=== PATIENT | male | born 1980 ===

== ENCOUNTER 2017-04-07 10:58 | Emergency (ER) | payer BC ==
[2017-04-07 11:19] VITALS: RESP 16; TEMP 98
--- NOTE | 2017-04-07 11:53 | ED PDOC ---
HPI: General Adult Time Seen by Provider: 04/07/17 11:09 Chief Complaint (Nursing): Syncope History Per: Patient Additional Complaint(s): Pt. states today at approximately 0700 he was urinating then after he finished he looked up the at the ceiling and that's all he remembers. Pt. states next event he remembers was his knocking on the bathroom door. He got up on his own and was completely asymptomatic afterwards. His said she heard a loud "thud" then she immediately went to the bathroom and she called his name twice and pt. woke up. Denies headache, prodromal symptoms, weakness, N/V, incontinence, hx of seizures. Of note, pt. states he did sleep late last night and felt more sleepy than usual upon awakening this morning. States he went to sleep this morning at 0300. Past Medical History Reviewed: Historical Data, Nursing Documentation, Vital Signs Vital Signs: Last Vital Signs Temp 98.0 F 04/07/17 11:11 Pulse 78 04/07/17 11:54 Resp 16 04/07/17 11:11 BP 114/56 L 04/07/17 11:11 Pulse Ox 99 04/07/17 11:54 - Medical History PMH: Multiple Sclerosis - Family History Family History: States: No Known Family Hx - Allergies Allergies/Adverse Reactions: Allergies Allergy/AdvReac Type Severity Reaction Status Date / Time No Known Allergies Allergy Verified 03/03/14 03:43 Review of Systems ROS Statement: Except As Marked, All Systems Reviewed And Found Negative Physical Exam - Reviewed Nursing Documentation Reviewed: Yes Vital Signs Reviewed: Yes - Physical Exam Appears: Positive for: Well, Non-toxic, No Acute Distress Head Exam: Positive for: ATRAUMATIC, NORMAL INSPECTION, NORMOCEPHALIC Skin: Positive for: Normal Color, Warm. Negative for: Rash Eye Exam: Positive for: EOMI, Normal appearance, PERRL ENT: Positive for: Normal ENT Inspection Neck: Positive for: Normal, Painless ROM Cardiovascular/Chest: Positive for: Regular Rate, Rhythm Respiratory: Positive for: CNT, Normal Breath Sounds Gastrointestinal/Abdominal: Positive for: Normal Exam, Bowel Sounds, Soft. Negative for: Tenderness Back: Positive for: Normal Inspection. Negative for: Vertebral Tenderness ( including cervical spine tenderness) Extremity: Positive for: Normal ROM Neurologic/Psych: Positive for: Alert, Oriented, Gait (steady, unassisted). Negative for: Aphasia, Facial Droop - Laboratory Results Result Diagrams: 04/07/17 11:52 04/07/17 11:52 - ECG ECG: Positive for: Interpreted By Me ECG Rhythm: Positive for: Sinus Rhythm. Negative for: ST/T Changes Rate: 78 O2 Sat by Pulse Oximetry: 99 - Progress ED Course And Treament: Labs ordered. CT head w/o contrast ordered. 1300 CT head w/o contrast: no acute changes; chronic skull small vessel disease Disposition - Clinical Impression Clinical Impression: Syncope - Patient ED Disposition Is Patient to be Admitted: No - Disposition Referrals: Cookie Ulrich [Outside] Disposition: Routine/Home Disposition Time: 13:00 Condition: STABLE Instructions: Syncope (ED) Forms: Cookie Borrego (Azeri), [facility] ED School/Work Excuse Print Language: SYRIAC
[2017-04-07 11:58] LABS: BASO % 0.5 % (0.0-2.0); EOS % 0.7 % (0.0-4.0); HEMATOCRIT 42.3 % (35.0-51.0); LYMPH % 15.9 % (20.0-40.0); MEAN CELL VOLUME 90.7 fl (80.0-94.0); MEAN CORPUSCULAR HEMOGLOBIN 30.4 pg (27.0-31.0); MEAN CORPUSCULAR HGB CONC 33.5 g/dL (33.0-37.0); MEAN PLATELET VOLUME 6.8 fl (7.2-11.7); MONO # 0.2 K/uL (0.0-0.8); MONO % 3.3 % (0.0-10.0); NEUT % 79.6 % (50.0-75.0); NRBC % 0.2 % (0.0-0.0); RED CELL DISTRIBUTION WIDTH 13.6 % (11.5-14.5); WHITE BLOOD COUNT 6.3 K/uL (4.8-10.8)
[2017-04-07 12:04] LABS: ALB/GLOB RATIO 1.5 (1.0-2.1); ALKALINE PHOSPHATASE 75 U/L (38-126); ALT/SGPT 41 U/L (21-72); AST/SGOT 24 U/L (17-59); BILIRUBIN,TOTAL 0.9 mg/dl (0.2-1.3); BLOOD UREA NITROGEN 12 mg/dl (9-20); CALCIUM 9.2 mg/dL (8.4-10.2); CARBON DIOXIDE 25 mmol/L (22-30); CHLORIDE 104 mmol/L (98-107); GFR AFRICAN-AMERICAN > 60; GLUCOSE,RANDOM 123 mg/dL (75-110); POTASSIUM 4.4 MMOL/L (3.6-5.0); SODIUM 140 mmol/l (132-148); TOTAL PROTEIN 7.4 G/DL (6.3-8.2)
--- NOTE | 2017-04-07 12:35 | CT ---
PROCEDURE: CT HEAD WITHOUT CONTRAST. HISTORY: syncope COMPARISON: Comparison made with prior CT scan brain dated 03/03/2014. TECHNIQUE: Axial computed tomography images were obtained through the head/brain without intravenous contrast. Radiation dose: Total exam DLP = 967.04 mGy-cm. This CT exam was performed using one or more of the following dose reduction techniques: Automated exposure control, adjustment of the mA and/or kV according to patient size, and/or use of iterative reconstruction technique. FINDINGS: HEMORRHAGE: No acute parenchymal, subarachnoid or extra-axial hemorrhage. BRAIN: There appears to be subtle slightly confluent chronic low-attenuation changes in the periventricular white matter nonspecific. Additionally subtle areas of low attenuation also seen in the deep and subcortical white matter of both cerebral hemispheres. Changes are of uncertain etiology although most likely represent chronic sequela of small vessel disease. Clinical correlation recommended to exclude other possibilities including sequela of old trauma, post infectious/inflammatory or posttraumatic etiologies. Moderate central volume loss evidenced by disproportionate enlargement of the ventricles as compared the sulci. No evidence of acute VENTRICLES: No obstructive hydrocephalus CALVARIUM: The PARANASAL SINUSES: Minor mucosal thickening seen within the ethmoid air complex. . MASTOID AIR CELLS: Unremarkable as visualized. No inflammatory changes. OTHER FINDINGS: None. IMPRESSION: No acute intracranial hemorrhage. There are chronic appearing periventricular and deep white matter changes which are of uncertain etiology though may represent chronic skull small vessel disease. Clinical correlation recommended. Moderate central volume loss. .
[2017-04-07 13:27] VITALS: BP 125/80; PULSE 76; O2SAT 100
--- NOTE | 2017-04-08 09:12 | CARD ---
APPROVED REPORT EKG Measurement Heart [id number] <Conclusion> Normal sinus rhythm Normal ECG
== END 2017-04-07 13:31 | disposition home or self-care (01) ==
LOC: H.ER 10:58
DX: R55 Syncope and collapse (principal); G35 Multiple sclerosis

== ENCOUNTER 2017-05-17 00:26 | Emergency (ER) | payer OTHER, BC ==
[2017-05-17 00:33] VITALS: BP 136/79; PULSE 69; RESP 16; TEMP 98.4; O2SAT 99
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
== END 2017-05-17 03:51 | disposition home or self-care (01) ==
LOC: H.ER 00:26
DX: M54.9 Dorsalgia, unspecified (principal); M25.511 Pain in right shoulder; M79.641 Pain in right hand; V03.10XA Pedestrian on foot injured in collision with car, pick-up truck or van in traffic accident, initial encounter; Y92.410 Unspecified street and highway as the place of occurrence of the external cause; G35 Multiple sclerosis